=== PATIENT | male | born 1955 | race Caucasian/White ===

== ENCOUNTER → 2019-05-10 10:59 | Emergency (ER) | payer BC, MEDICARE ==
[~2019-05-10 10:59] MED LIST: DOXYcycline CAP(*) 100 MG PO ONE; predniSONE TAB* 20 MG PO ONE
--- NOTE | 2019-05-10 11:14 | ED ---
Neurological HPI - HPI Summary HPI Summary: A 64 y/o male presents to [facility] with a chief complaint of right sided facial droop for the last two days. He denies any eye pain, ear pain, cold, cold sore, or numbness. He rates his pain as a 0/10 in severity. He says that he has been outside often. He reports having bypass done at [facility] below his knees. He denies a Hx of CVA or DM. - History of Current Complaint Chief Complaint: EDNeurologicalDeficit Stated Complaint: POSS STROKE PER Time Seen by Provider: 05/10/19 11:05 Hx Obtained From: Patient Onset/Duration: Sudden Onset, Started days ago, Still Present Timing: Constant Onset Severity: Mild Current Severity: Mild Neurological Deficit Location: Facial Pain Intensity: 0 Pain Scale Used: 0-10 Numeric Character: Other: - right sided facial droop Aggravating: Nothing Alleviating: Nothing Associated Signs and Symptoms: Negative: Pain, Numbness, Fever - Allergy/Home Medications Allergies/Adverse Reactions: Allergies Allergy/AdvReac Type Severity Reaction Status Date / Time No Known Allergies Allergy Verified 05/10/19 13:53 Home Medications: Home Medications Chlorthalidone 25 mg PO DAILY 05/10/19 [History Confirmed 05/10/19] Clopidogrel TAB* [Plavix TAB*] 75 mg PO DAILY 05/10/19 [History Confirmed ] Lisinopril 20 mg PO DAILY 05/10/19 [History Confirmed 05/10/19] Simvastatin 20 mg PO DAILY 05/10/19 [History Confirmed 05/10/19] PMH/Surg Hx/FS Hx/Imm Hx Endocrine/Hematology History: Denies: Hx Diabetes Cardiovascular History: Reports: Hx Hypertension Sensory History: Denies: Hx Deafness EENT History: Denies: Hx Deafness Neurological History: Denies: Hx CVA Infectious Disease History: No Infectious Disease History: Denies: Traveled Outside the [place] in Last 30 Days - Family History Known Family History: Negative: Hypertension, Diabetes Review of Systems Negative: Fever Positive: Other - negative: cold symptoms Positive: Other - negative: cold sores Neurological: Other - positive: right sided facial droop Negative: Numbness All Other Systems Reviewed And Are Negative: Yes Physical Exam - Summary Physical Exam Summary: Appearance: The patient is well-nourished in no acute distress and in no acute pain. Skin: The skin is warm and dry and skin color reflects adequate perfusion. HEENT: The head is normocephalic and atraumatic. The pupils are equal and reactive. The conjunctivae are clear and without drainage. Nares are patent and without drainage. Mouth reveals moist mucous membranes and the throat is without erythema and exudate. The external ears are intact. The ear canals are patent and without drainage. The tympanic membranes are intact. Neck: The neck is supple with full range of motion and non-tender. There are no carotid bruits. There is no neck vein distension. Respiratory: Chest is non-tender. Lungs are clear to auscultation and breath sounds are symmetrical and equal. Cardiovascular: Heart is regular rate and rhythm. There is no murmur or rub auscultated. There is no peripheral edema and pulses are symmetrical and equal. Abdomen: The abdomen is soft and non-tender. There are normal bowel sounds heard in all four quadrants and there is no organomegaly palpated. Musculoskeletal: There is no back tenderness noted. Extremities are non-tender with full range of motion. There is good capillary refill. There is no peripheral edema or calf tenderness elicited. Neurological: Patient is alert and oriented to person, place and time. The patient has symmetrical motor strength in all four extremities. Right sided facial droop with forehead included. He is able to close his right eye. Psychiatric: The patient has an appropriate affect and does not exhibit any anxiety or depression. Triage Information Reviewed: Yes Vital Signs On Initial Exam: Initial Vitals Temp Pulse Resp BP Pulse Ox 97.9 F 85 18 160/88 96 05/10/19 11:00 05/10/19 11:00 05/10/19 11:00 05/10/19 11:00 05/10/19 11:00 Vital Signs Reviewed: Yes - Queenie Coma Scale Best Eye Response: 4 - Spontaneous Best Motor Response: 6 - Obeys Commands Best Verbal Response: 5 - Oriented Coma Scale Total: 15 Diagnostics - Vital Signs Vital Signs Temp Pulse Resp BP Pulse Ox 05/10/19 11:00 97.9 F 85 18 160/88 96 - Laboratory Result Diagrams: 05/10/19 11:45 05/10/19 11:45 Lab Statement: Any lab studies that have been ordered have been reviewed, and results considered in the medical decision making process. - CT Brain CT Interpretation Completed By: Radiologist Summary of CT Findings: NO ACUTE INTRACRANIAL PATHOLOGY. ED physician has reviewed this imaging report. - EKG 11:18 Cardiac Rate: NL - 77bpm EKG Rhythm: Sinus Rhythm Summary of EKG Findings: Normal sinus rhythm, normal ST, no ectopy, no STEMI. Course/Dx - Course Course Of Treatment: Mr. Lew presented with 2 days of right facial droop. He denied any other symptoms. On exam he had right facial droop with 4 head included. It was my clinical impression that this was a Silva's however I worked him up for possible stroke including a consultation with Dr. Patel of neurology. He also felt it was a Silva's and recommended doxycycline, steroids and close follow-up. - Diagnoses Provider Diagnoses: Silva's palsy - Physician Notifications Discussed Care Of Patient With: Deejay Patel Time Discussed With Above Provider: 12:34 Instructed by Provider To: MD Will See In ED Discharge - Sign-Out/Discharge Documenting (check all that apply): Patient Departure - DC Patient Received Moderate/Deep Sedation with Procedure: No - Discharge Plan Condition: Stable Disposition: HOME Prescriptions: DOXYcycline CAP(*) [DOXYcycline 100MG CAP(*)] 100 mg PO BID #14 cap predniSONE TAB* [Deltasone 20 MG TAB*] 20 mg PO DAILY #15 tab Patient Education Materials: Silva Palsy (ED) Referrals: Santana White MD [Primary Care Provider] - (2-3 days) Deejay Patel MD [Medical Doctor] - Additional Instructions: Follow up with Dr. Patel and your PCP in 2-3 days. Return to the emergency department for any new or worsening symptoms. - Billing Disposition and Condition Condition: STABLE Disposition: Home - Attestation Statements Document Initiated by Scribe: Yes Documenting Scribe: Arden Kim Provider For Whom Michelle is Documenting (Include Credential): Markus Lopez MD Scribe Attestation: I, Arden Kim, scribed for Markus Lopez MD on 05/10/19 at 1811. Scribe Documentation Reviewed: Yes Provider Attestation: The documentation as recorded by the Arden holley accurately reflects the service I personally performed and the decisions made by me, Markus Lopez MD Status of Scribe Document: Viewed
[2019-05-10 11:56] LABS: ABS Eosinophils 0.1 10^3/ul (0-0.6); ABS Lymphocytes 1.9 10^3/ul (1.0-4.8); ABS Monocytes 0.6 10^3/ul (0-0.8); ABS Neutrophils 5.6 10^3/ul (1.5-7.7); Hematocrit 51 % (42-52); Hemoglobin 17.5 g/dL (14.0-18.0); Lymphocyte % 23.2 %; Mean Corpuscular HGB Conc 34 g/dL (31-36); Mean Corpuscular Hemoglobin 31 pg (27-31); Mean Corpuscular Volume 90 fL (80-94); Mean Platelet Volume 10.3 fL (7.4-10.4); Platelet Count 178 10^3/uL (150-450); Red Blood Count 5.63 10^6 /uL (4.18-5.48); Red Cell Distribution Width 15 % (10-15); White Blood Count 8.3 10^3/uL (3.5-10.8)
[2019-05-10 12:05] LABS: INR 1.15 (0.82-1.09)
[2019-05-10 12:15] LABS: Albumin 4.5 g/dL (3.2-5.2); Calcium 10.2 mg/dL (8.6-10.3); Potassium 3.5 mmol/L (3.5-5.0); Total Bilirubin 0.8 mg/dL (0.2-1.0)
[2019-05-10 12:21] LABS: Albumin/Globulin Ratio 1.5 (1-3); BUN/Creatinine Ratio 17.3 (8-20); EGFR African American 126.1 (>60); EGFR Non-African American 104.2 (>60); Globulin 3.1 g/dL (2-4); Total Protein 7.6 g/dL (6.4-8.9)
[2019-05-10 12:43] LABS: TSH (Thyroid Stimulating Horm) 2.05 mcIU/mL (0.34-5.60)
[2019-05-10 14:00] VITALS: BP 117/80
--- NOTE | 2019-05-10 14:37 | CONS ---
NEUROLOGY CONSULTATION: DATE OF CONSULT: 05/10/19 LOCATION: He is in the emergency room. REFERRING PROVIDER: Dr. Markus Lopez. CHIEF COMPLAINT: Facial weakness. HISTORY OF PRESENT ILLNESS: Naresh Jimenes is a 64-year-old man who noted about 2 days ago that the right side of his face felt different. It progressed a little bit until today when it was quite clear that the right side of his face was weak. He came into the emergency room to be evaluated. He has not noticed any pain, specifically no ear pain or headache. He has not had any recent rashes, fevers, chills, or history of tick bites. He is outside quite a bit mowing lawns. He has not noticed any change in hearing or change in taste. PAST MEDICAL HISTORY: Notable for peripheral vascular disease. He just recently had some peripheral vascular procedures in his lower extremities. He has a history of dyslipidemia and hypertension. MEDICATIONS: At home consist of: 1. Simvastatin 20 mg p.o. q. day. 2. Lisinopril 20 mg p.o. q. day. 3. Plavix 75 mg p.o. q. day. 4. Chlorthalidone 25 mg p.o. q. day. ALLERGIES: He is allergic to PIPERACILLIN. SOCIAL HISTORY: He is a former smoker. He lives with his . REVIEW OF SYSTEMS: Unremarkable other than history of present illness and past medical history. PHYSICAL EXAM: He is well nourished and overweight. Temperature is 97.9, blood pressure most recently 141/77, heart rate is running in the 70s. Respiratory rate is 26 and oxygen saturation is 95%. Heart tones are normal without murmurs. He has some chronic looking skin lesions, but no rashes otherwise. Neurological Exam: Pupils react equally to light from 5 mm down to 2.5 mm. Eye movements are normal. Conjunctivae are bit injected bilaterally. Funduscopic exam is normal. Facial musculature is notable for peripheral pattern right facial palsy. He is able to close the eye barely on the right side, so it is not a complete facial palsy. He has a little bit of right forehead muscle movement, but not much. Facial sensation to light touch is symmetric. Palate and tongue appear normal and tongue protrudes in the midline. Palate rises symmetrically. There is a mild buccal dysarthria. He has good strength in the limbs in all 4 extremities. He has intact reflexes at the brachioradialis and knees bilaterally. [id number] maneuver is normal bilaterally. He is alert and oriented and an excellent detailed historian. Memory is intact and language is fluent. He has good attention, concentration, and adequate fund of knowledge. DIAGNOSTIC STUDIES/LAB DATA: Laboratory data includes a normal CBC, chemistry profile notable for a nonfasting glucose of 111 and a normal TSH. INR is borderline elevated at 1.15. IMPRESSION AND PLAN: Impression is that of Silva's palsy. In this endemic area for Lyme disease at this time of year that is also certainly in the differential diagnosis. I would recommend treating with a tapering dose of prednisone starting at 60 mg per day and tapering it over 7 days. Recommend treating the patient with doxycycline 100 mg b.i.d. for a week. Dr. Lopez has sent off blood work for Lyme serologies. We will see him in our office in a week or so, and if his Lyme tests come back positive, we will treat him for a full 14 days. If it is negative and he is improved, then we will probably just go with the 7 days. I explained the diagnosis and differential diagnosis to Mr. Jimenes and his spouse and gave them opportunity to ask questions. [id number]/[facility] #: [id number] [facility]ab[facility]
[2019-05-13 02:11] LABS: Anaplasma phagocytophilum Negative (Negative); B garinii/B afzelii PCR Negative (Negative); B mayonii PCR Negative (Negative); B. miyamotoi PCR, B Negative (Negative); Babesia divergens/MO-1 Negative (Negative); Babesia ducani Negative (Negative); Ehrlichia chaffeensis Negative (Negative); Ehrlichia ewingii/canis Negative (Negative); Ehrlichia muris eauclairensis Negative (Negative)
== END | disposition home or self-care (01) ==
LOC: ED 10:59
DX: G51.0 Bell's palsy (principal); I10 Essential (primary) hypertension; Z79.899 Other long term (current) drug therapy; Z79.01 Long term (current) use of anticoagulants; Z87.891 Personal history of nicotine dependence
CPT/HCPCS: 36415; 70450; 80053; 83605; 84443; 84484; 85025; 85610; 86618; 87476; 87798; 93005; 99283; A9270-GY; J7512